=== PATIENT | female | born 1940 | race Caucasian/White ===

== ENCOUNTER → 2016-07-16 | Outpatient (CLI) | payer OTHER ==
--- NOTE | 2016-07-16 13:16 | MAMMOGRAPHY REPORT ---
BILATERAL DIGITAL SCREENING MAMMOGRAM WITH CAD: 07/16/2016 TECHNIQUE: Current study was also evaluated with a Computer Aided Detection (CAD) system. Bilatera l CC and MLO views were obtained. COMPARISON: Comparison is made to exams dated: 07/11/2015 mammogram, 06/29/2013 mammogram, 07/05/2014 m ammogram, 06/23/2012 mammogram, 06/18/2011 mammogram, and 06/16/2010 mammogram - [facility] nter. BREAST COMPOSITION: The tissue of both breasts is heterogeneously dense, which may obscure small ma sses. FINDINGS: No suspicious masses, calcifications, or areas of architectural distortion are noted in e ither breast. There has been no significant interval change compared to prior exams. IMPRESSION: ACR BI-RADS CATEGORY 1: NEGATIVE There is no mammographic evidence of malignancy. A 1 year screening mammogram is recommended. The p atient will receive written notification of the results. Approximately 10% of breast cancers are not detected with mammography. A negative mammographic repor t should not delay biopsy if a clinically suggestive mass is present. Kim Lemon M.D. /:07/16/2016 12:22:57 Cd Mixer: Sherin BARROW(Milind)(Kalyan), [facility] letter sent: Normal 1/2 BI-RADS Code: ACR BI-RADS Category 1: Negative
== END ==
LOC: C.MAMM 08:34
PROVIDERS: ATTEND Family Medicine
DX: Z12.31 Encounter for screening mammogram for malignant neoplasm of breast (principal)

== ENCOUNTER 2017-04-16 08:52 | Inpatient (IN) | payer OTHER ==
[2017-03-25 10:58] VITALS: BMI 25.0
--- NOTE | 2017-03-25 11:25 | PAT Medication Instructions ---
Service Date Mar 25, 2017. Current Home Medication List Calcium/Vitamin D (Os-Wai 500 Plus D), 1 TAB PO QAM Ibuprofen (Advil), 400 MG PO PRN Multivitamin (Multivitamin), 1 TAB PO QAM [[facility]], 1 TAB PO QAM [Nexium], 1 TAB PO PRN Medication Instructions For Your Scheduled Surgery - Check with surgeon for instructions: Ibuprofen (Advil), 400 MG PO PRN - Hold the following medications the morning of surgery: Calcium/Vitamin D (Os-Wai 500 Plus D), 1 TAB PO QAM Multivitamin (Multivitamin), 1 TAB PO QAM [[facility]], 1 TAB PO QAM - Take the following medications the morning of surgery with a sip of water: [Nexium], 1 TAB PO PRN (if needed) - Take the following medications as scheduled the night before surgery: [Nexium], 1 TAB PO PRN (if needed) If you have any questions please call us at [phone] or [phone] or [phone]
[2017-03-25 12:00] LABS: BASO % 0.6 %; BASO ABS # 0.03 K/uL (0-0.2); COMPLETE YES; EOS % 1.6 %; HEMATOCRIT 38.7 % (37-47); IG% 0.2 %; LYMPH % 28.6 %; LYMPH ABS # 1.42 K/uL (1.2-3.4); MEAN CELL VOLUME 93.9 fL (80-100); MEAN CORPUSCULAR HEMOGLOBIN 31.6 pg (25-34); MEAN CORPUSCULAR HGB CONC 33.6 g/dl (32-36); MEAN PLATELET VOLUME 11.1 fL (7.4-10.4); PLATELET COUNT 202 K/uL (130-400); RED BLOOD COUNT 4.12 M/uL (4.2-5.4); WHITE BLOOD COUNT 4.97 K/uL (4.8-10.8)
[2017-03-25 12:04] LABS: URINE APPEARANCE CLEAR (CLEAR); URINE BILIRUBIN NEG (NEG); URINE COLOR YELLOW; URINE EPITHELIAL CELL AUTO 0-5 /lpf (0-5); URINE NITRITE NEG (NEG); URINE SPECIFIC GRAVITY 1.019 (1.000-1.030); UROBILINOGEN NEG (NEG)
[2017-03-25 12:06] LABS: MANUAL MICROSCOPIC REQUIRED? NO; REVIEW REQ? NO
[2017-03-25 12:09] LABS: BUN/CREATININE RATIO 25.1 (10-20); CALCIUM 8.5 mg/dl (8.5-10.1); CREATININE 0.79 mg/dl (0.60-1.20); POTASSIUM 4.3 mmol/L (3.5-5.1)
[2017-03-25 12:10] LABS: PARTIAL THROMBOPLASTIN RATIO 1.1; PROTHROMBIN TIME (PATIENT) 10.7 SECONDS (9.0-12.0)
--- NOTE | 2017-03-25 12:43 | DIAGNOSTIC IMAGING REPORT ---
CHEST PREADMISSION(PA/LAT) CLINICAL HISTORY: Preoperative chest COMPARISON STUDY: No previous studies for comparison. FINDINGS: The cardiac and mediastinal contours are normal. There is no evidence of focal pulmonary consolidation. There is no evidence of failure. No pleural effusions are visualized.[ IMPRESSION: No active disease in the chest. Electronically signed by: Manjit Umanzor M.D. 03/25/2017 12:42 PM Dictated Date/Time: 03/25/2017 12:41 PM
[2017-03-25 13:01] LABS: ESTIMATED AVERAGE GLUCOSE 108 mg/dl; HA1C FLAG Normal (Normal)
--- NOTE | 2017-04-12 11:05 | History and Physical ---
History & Physical Date Apr 12, 2017. Chief Complaint Right knee pain History of Present Illness The patient is a 76 year old female with complaints of Right knee pain for several years. She has tried conservative therapy with minimal relief. She would like to proceed with a right total knee arthroplasty. Past Medical/Surgical History PMHx: Osteoarthritis, GERD PSHx: appendectomy, total hysterectomy, left carpal tunnel release Additional History Hepatic Disease: No Endocrine Disorder: No Kidney Disease: No Hypertension: No Heart Disease: No Bleeding Tendencies: No Infectious Diseases: No Allergies Coded Allergies: No Known Allergies (Unverified , 03/25/17) Home Medications Scheduled Calcium/Vitamin D (Os-Wai 500 Plus D), 1 TAB PO QAM Ibuprofen (Advil), 400 MG PO PRN Multivitamin (Multivitamin), 1 TAB PO QAM [[facility]], 1 TAB PO QAM [Nexium], 1 TAB PO PRN Physical Examination Skin: warm/dry, no rash Eyes: normal inspection, EOMI ENT: normal ENT inspection Head: normocephalic, atraumatic Neck: supple, no adenopathy Respiratory/Chest: lungs clear, normal breath sounds Cardiovascular: regular rate, rhythm, no murmur Abdomen / GI: normal bowel sounds, non tender Extremities: normal inspection, + pertinent finding (Medial joint line tenderness, ligaments are intact, decreased strength and ROM) Neurologic/Psych: no motor/sensory deficits, alert, oriented x 3 Diagnosis Primary osteoarthritis of right knee Plan of Treatment Patient is scheduled for a right total knee arthroplasty. She has failed conservative therapy. She would like to proceed with surgery as scheduled. Risks and benefits to surgery were discussed with the patient and they wish to proceed. All questions were answered to their satisfaction. ASA 81mg BID with be DVT prophylaxis and she would like to go home with Home health.
[~2017-04-16] VITALS: Ht 167.6 cm; Wt 70.3 kg
[2017-04-16] VITALS (7 sets, daily range): BP systolic 98–148; BP diastolic 60–90; PULSE 67–78; TEMP 36–36.8; O2SAT 95–100; Ht 167.6 cm; Wt 70.3 kg
[2017-04-16] MEDS: TRANEXAMIC ACID INJ 1,000 MG in SYRINGE 0 ML IV SCH ×2 (06:30→11:00)
[~2017-04-16 08:52] MED LIST: ACETAMINOPHEN 500 MG TAB PO SCH; BUPIVACAINE 0.5 % 5 MG/1 ML PF 10ML VIAL ONE; CALC500C70 PO; CEFAZOLIN 1000MG IV PUSH 5 ML IV SCH; CeleBREX 200 MG CAP PO SCH; DEXAMETHASONE 4 MG TAB PO SCH; FAMOTIDINE 20 MG TAB PO SCH; GABAPENTIN 300 MG CAP PO SCH; IBUP-1050 PO; LACTATED RINGER'S 1000ML 1,000 ML IV SCH; LACTATED RINGER'S 1000ML 500 ML IV ONE; MACU HEALTH PO; METOCLOPRAMIDE HCL 10 MG TAB PO SCH; MULT-506 PO; NEXIUM PO; ROPIVACAINE 0.5% 5 MG/ML 30 ML VIAL ONE; ROPIVACAINE 5MG/ML 30 ML 150 MG, BUPIVACAINE 0.5% MPF INJ 30 ML, EpINEphrine HCL INJ 0.... INFIL SCH
[2017-04-16] MEDS ORDERED: ATROPINE SULFATE 0.1 MG/ML 5ML SYR IV PRN (09:00)
[2017-04-16] MEDS ORDERED: ONDANSETRON INJ 2 MG/ML 2 ML VIAL IV PRN ×2 (09:00→13:30)
[2017-04-16] MEDS ORDERED: PHENYLEPHRINE 100MCG/ML 5ML SYR IV PRN (09:00)
[2017-04-16] MEDS ORDERED: EpHEDrine SULFATE INJ 50 MG/ML AMP IV PRN (09:00)
[2017-04-16] MEDS ORDERED: HYDROmorphone INJ 2 MG/ML SYR/VIAL IV PRN (09:00)
--- NOTE | 2017-04-16 10:08 | History & Physical Bridge Note ---
H&P Re-Evaluation Bridge Note: I have examined the patient, reviewed the History & Physical and in the interval since the performance of the History & Physical I have noted the following changes of clinical significance: No changes noted
[2017-04-16] MEDS ORDERED: MIDAZOLAM HCL 1 MG/ML 2ML VIAL ONE ×2 (10:18→11:55)
[2017-04-16] MEDS ORDERED: PROPOFOL IV EMULSION 10 MG/ML 20 ML VIAL IV ONE (10:18)
[2017-04-16] MEDS ORDERED: ONDANSETRON INJ 2 MG/ML 2 ML VIAL ONE (10:18)
[2017-04-16] MEDS ORDERED: LIDOCAINE HCL 2% 2 ML VIAL (20MG/ML) ONE (10:18)
[2017-04-16] MEDS ORDERED: FENTANYL CITRATE INJ 50 MCG/1 ML 2 ML VIAL ONE (10:18)
[2017-04-16] MEDS ORDERED: ORTHO JOINT ANESTHETIC ONE (10:43)
[2017-04-16] MEDS ORDERED: BACITRACIN 50000 UNIT VIAL ONE (10:43)
[2017-04-16] MEDS ORDERED: POVIDONE-IODINE OP SOLN 30 ML BTL ONE (10:43)
--- NOTE | 2017-04-16 12:43 | [facility] Operative Report ---
Operative Report Operative Date Apr 16, 2017. Pre-Operative Diagnosis Primary osteoarthritis of right knee Post-Operative Diagnosis Same Procedure(s) Performed Right Total knee Athroplasty Surgeon Dr Marcum Veterinary Inspector Surgeon(s) Ike Hester PA-C Estimated Blood Loss 20ML Findings As above Specimens a. Right Knee- Bone and Tissue Drains 2 Hemovac Anesthesia spinal Complication(s) None Disposition Recovery Room / PACU Indications 76-year-old female long-standing degenerative joint disease the right knee. She 's failed conservative measures including injection anti-inflammatories and rehabilitation. She wishes to proceed with a right total knee arthroplasty. Description of Procedure Risks benefits and alternatives of surgery including but not limited to infection, DVT, pain, stiffness, need for surgery, damage to blood vessels, damage to nerves or risks of anesthesia were discussed with the patient and they wished to proceed. The patient was identified and the laterality was confirmed and marked. They received a preoperative antibiotic as well as a spinal anesthetic and an abductor canal block. A well-padded tourniquet was applied and then the limb was prepped and draped in standard manner with ChloraPrep. The limb was exsanguinated and the tourniquet was inflated. I made a standard anterior incision. I sharply incised the skin then utilized Bovie electrocautery as well as the aqua mantis to achieve hemostasis. I made a medial parapatellar arthrotomy immobilized the patella laterally. I then excised the anterior horns of the medial and lateral meniscus as well as the infrapatellar fat pad. I elevated a portion of the MCL off of the tibia. I then pinned into place a patient-matched distal femoral cutting guide and made my distal femoral resection. I then pinned into place the 5 in 1 femoral cutting guide. I made my anterior, posterior and chamfer cuts. I then excised the cruciates and the remaining portions of the menisci. I then pinned into place a patient- matched tibial cutting guide and made my tibial resection. I then pinned into place the tibial plate a utilizing alignment momo to confirm rotation. I then cut for the post. Utilizing a lamina event decorator and designer and I then removed posterior osteophytes off the femur. I then placed a trial femur into position and cut for the trochlear component. I then sequentially trialed to size the polyethylene until there was good soft tissue balancing and range of motion. I then prepared the patella with a freehand cut utilizing sagittal saw. I sized and drilled for the patella. There was good tracking to the patella no lateral release was needed. All the trial components were removed. The deep tissues were anesthetized with an ortho mix solution. Then with Simplex HV with gentamicin cement, I cemented my definitive components. Definitive components, Oliver and Nephew Journey 2: Femur 4 Tibia 2 Poly 11 Patella 29 oval A betadine soak was performed. A deep drain was placed. The arthrotomy was closed with interrupted #1 Vicryl suture subcutaneous tissue was closed with interrupted 2-0 Vicryl suture. The skin was closed with with aura. A Silverlon was placed. Sterile dressings were applied. All needle and sponge counts were correct at the end of the procedure patient was transferred to the PACU in stable condition without apparent complication. The PA-C was necessary for assistance with procedure for assistance in positioning, prepping, draping, retraction and closure. I attest to the content of the Intraoperative Record and any orders documented therein. Any exceptions are noted below.
[2017-04-16] MEDS ORDERED: MAGNESIUM HYDROXIDE SUSP 30 ML UDC PO PRN (13:30)
[2017-04-16] MEDS ORDERED: MoRPHine SULFATE 2 MG/ML CARP IV PRN (13:30)
[2017-04-16] MEDS ORDERED: ALUMINUM/MAGNESIUM/SIMETH (MAALOX MAX) 30 ML UDC PO PRN (13:30)
[2017-04-16] MEDS ORDERED: MoRPHine SULFATE 4 MG/ML 1 ML CARP\\VIAL IV PRN (13:30)
[2017-04-16] MEDS ORDERED: TRAMADOL HCL 50 MG TAB PO PRN (13:30)
--- NOTE | 2017-04-16 13:43 | DIAGNOSTIC IMAGING REPORT ---
R KNEE 1 OR 2 VIEWS ROUTINE CLINICAL HISTORY: Right knee osteoarthritis. Arthroplasty. COMPARISON: None FINDINGS: Alignment of the total right knee arthroplasty is anatomic. There is no periprosthetic fracture or unexpected radiopaque foreign body. Drains and skin aura are present. IMPRESSION: Expected findings following total right knee arthroplasty. Electronically signed by: Sanchez Whittaker M.D. 04/16/2017 1:42 PM Dictated Date/Time: 04/16/2017 1:41 PM
--- NOTE | 2017-04-16 13:50 | Anesthesiology Progress Note ---
Anesthesia Post Op Note Date & Time Apr 16, 2017 at 13:50 Vital Signs Pain Intensity: 0 Vital Signs Past 12 Hours Date Time Temp Pulse Resp B/P (MAP) Pulse Ox O2 Delivery O2 Flow Rate FiO2 04/16/17 13:20 Nasal Cannula 3 04/16/17 13:12 36.2 64 16 122/68 99 Oxymask 7 04/16/17 09:25 36.8 78 18 143/90 95 Room Air Notes Mental Status: alert / awake / arousable, participated in evaluation Pt Amnestic to Procedure: Yes Nausea / Vomiting: adequately controlled Pain: adequately controlled Airway Patency, RR, SpO2: stable & adequate BP & HR: stable & adequate Hydration State: stable & adequate Anesthetic Complications: no major complications apparent
[2017-04-16] MEDS: D5W AND 1/2NSS + 20MEQ KCL 1,000 ML IV SCH ×2 (15:45→23:44)
[2017-04-16] MEDS: FERROUS GLUCONATE 324 MG TAB PO SCH (17:54)
[2017-04-16] MEDS: ACETAMINOPHEN 500 MG TAB PO SCH (17:54)
[2017-04-16] MEDS: CEFAZOLIN IV 1,000 MG in SYRINGE 0 ML IV SCH (19:39)
[2017-04-16] MEDS: OXYCODONE HCL IR 5 MG TAB (IMMEDIATE RELEASE) PO PRN (20:05)
[2017-04-16] MEDS: ASPIRIN 81 MG ECTAB PO SCH (20:50)
[2017-04-16] MEDS: SENNA 8.6 MG TAB PO SCH (20:50)
[2017-04-16] MEDS: DOCUSATE SODIUM 100 MG CAP PO SCH (20:50)
[2017-04-16] MEDS: CeleBREX 200 MG CAP PO SCH (20:50)
[2017-04-17] MEDS: ACETAMINOPHEN 500 MG TAB PO SCH ×3 (01:37→18:18)
[2017-04-17 03:15] VITALS: BP 123/79; PULSE 60; TEMP 36.4; O2SAT 97
[2017-04-17] MEDS: CEFAZOLIN IV 1,000 MG in SYRINGE 0 ML IV SCH (04:14)
[2017-04-17 06:06] LABS: HEMATOCRIT 33.4 % (37-47); MEAN CELL VOLUME 94.9 fL (80-100); MEAN CORPUSCULAR HEMOGLOBIN 31.5 pg (25-34); MEAN CORPUSCULAR HGB CONC 33.2 g/dl (32-36); MEAN PLATELET VOLUME 10.9 fL (7.4-10.4); PLATELET COUNT 169 K/uL (130-400); RED BLOOD COUNT 3.52 M/uL (4.2-5.4); WHITE BLOOD COUNT 11.49 K/uL (4.8-10.8)
[2017-04-17 06:40] LABS: BUN/CREATININE RATIO 16.5 (10-20); CALCIUM 8.2 mg/dl (8.5-10.1); CREATININE 0.77 mg/dl (0.60-1.20); POTASSIUM 4.7 mmol/L (3.5-5.1)
--- NOTE | 2017-04-17 07:24 | Orthopedic Progress Note ---
Orthopedic Progress Note Date of Service Apr 17, 2017. Subjective Post OP Day: 1 Reports: feeling well, pain controlled w PO medications, Denies: complaints, chest pain, SOB, nausea / vomiting, light headedness, calf pain Objective calves soft nontender, N/V intact, capillary refill less than 2 sec., dressing C /D/I, A&O x3, toes mobile, hemovac drainage (50cc/50cc) Date Time Temp Pulse Resp B/P (MAP) Pulse Ox O2 Delivery O2 Flow Rate FiO2 04/17/17 03:15 36.4 60 16 123/79 (94) 97 Room Air 04/16/17 23:40 Room Air 04/16/17 23:00 36.3 67 18 98/60 (73) 97 Room Air 04/16/17 20:14 36.5 69 17 127/80 (96) 96 Room Air 04/16/17 17:01 36.6 68 17 148/68 (94) 100 Room Air 04/16/17 15:56 36.4 68 18 145/85 (105) 100 Nasal Cannula 3.0 04/16/17 15:40 Nasal Cannula 3.0 04/16/17 15:04 36.0 77 17 134/80 (98) 100 Nasal Cannula 3.0 04/16/17 14:36 75 17 131/84 (100) 100 Nasal Cannula 3.0 04/16/17 14:00 Nasal Cannula 2.0 04/16/17 14:00 Nasal Cannula 2.0 04/16/17 13:20 Nasal Cannula 3 04/16/17 13:12 36.2 64 16 122/68 99 Oxymask 7 04/16/17 09:25 36.8 78 18 143/90 95 Room Air Laboratory Results 24 Hours: Test 04/17/17 05:44 Hematocrit 33.4 % Hemoglobin 11.1 g/dL Assessment & Plan Assessment: POD#1 Right TKA Plan: Medical Management DVT - ASA PT/OT Discharge - Home with Home Health Inhouse Planning Pain Management: Celebrex, PO Tylenol, Oxy IR DVT Prophylaxis: TEDs, SCDs, ASA Discharge Planning Discharge Planning: home with home health Pain Management: Celebrex, PO Tylenol, Oxy IR DVT Prophylaxis: TEDs, ASA Therapy: Physical Therapy
[2017-04-17 07:56] VITALS: BP 129/77; PULSE 52; TEMP 36.5; O2SAT 100
[2017-04-17] MEDS: D5W AND 1/2NSS + 20MEQ KCL 1,000 ML IV SCH (09:28)
[2017-04-17] MEDS: FERROUS GLUCONATE 324 MG TAB PO SCH ×3 (09:31→18:17)
[2017-04-17] MEDS: OXYCODONE HCL IR 5 MG TAB (IMMEDIATE RELEASE) PO PRN ×3 (09:31→18:18)
[2017-04-17] MEDS: CeleBREX 200 MG CAP PO SCH ×2 (09:32→20:44)
[2017-04-17] MEDS: ASPIRIN 81 MG ECTAB PO SCH ×2 (09:34→20:44)
[2017-04-17] MEDS: MULTIVITAMIN TAB PO SCH (09:34)
[2017-04-17] MEDS: DOCUSATE SODIUM 100 MG CAP PO SCH ×2 (09:35→20:44)
[2017-04-17] MEDS: PANTOprazole SOD 40 MG TAB PO SCH (09:35)
[2017-04-17 12:27] VITALS: BP 134/77; PULSE 58; TEMP 36.2; O2SAT 100
[2017-04-17 13:05] VITALS: BP 137/89; PULSE 69; O2SAT 100
[2017-04-17 15:05] VITALS: BP 141/83; PULSE 60; TEMP 36.3; O2SAT 100
--- NOTE | 2017-04-17 20:34 | Discharge Instructions ---
Discharge Instructions Date of Service Apr 17, 2017. Admission Reason for Admission: Right Knee Osteoarthritis Discharge Discharge Diagnosis / Problem: S/P Right TKA Discharge Goals Goal(s): Decrease discomfort, Improve function Activity Recommendations Activity Limitations: per Instructions/Follow-up section . Instructions / Follow-Up Instructions / Follow-Up ACTIVITY RECOMMENDATIONS: SELF CARE INSTRUCTIONS AFTER TOTAL KNEE REPLACEMENT A. You may need to continue a physical therapy program after discharge from the hospital. There are several options available to you. Your doctor will assist you in selecting the best one for you. 1. An out-patient facility 2 to 3 times a week for therapy or home therapy. 2. Continue working on all exercises taught to you in the hospital. Your goals should be to increase bending of your knee to 90 degrees and beyond and to fully straighten your knee. B. You may progress at your own pace from walking with a walker or crutches to a cane; then to no assistive devices. C. Make walking a part of your daily routine. Be up as much as comfortable with rest periods throughout the day. Rest with leg elevation is very important. Use the ice wrap frequently for the first 3-4 weeks. D. There are no restrictions on activities. You may ride in a car, shop, participate in cathode washer and all social activities. E. Wear the long elastic stockings (MILEY hose) 20 hours a day for 2 weeks after surgery. They can be removed several times a day for laundering and for a bath. F. You may shower, no tub baths until cleared by your doctor. SPECIAL CARE INSTRUCTIONS: VERY IMPORTANT TO READ AND REVIEW A. There are a few signs you need to watch for after you are home. Call [facility] if you notice any of the followin. Increased severe knee pain. Some pain is expected especially when you exercise. 2. Increased swelling in your leg or knee; pain or swelling of the calf muscle in either lower leg. 3. Any fluid drainage from the incision. 4. Shortness of breath or chest pain. B. Please call [facility] at if you have any concerns or questions about your operation or recovery. The doctor or his nurse will return your call promptly. C. You must take antibiotics before dental work, bladder, bowel or other surgery. Your doctor will provide you with a permanent care to carry describing this precaution. IMPORTANT: * REMEMBER TO TAKE ASPIRIN, 81 MG, TWICE DAILY FOR 4 WEEKS UNLESS OTHERWISE DIRECTED. THIS IS YOUR BLOOD THINNER. * CALL IF INCREASED PAIN, REDNESS, DRAINAGE OR FEVER GREATER THAT 101. * WEAR MILEY HOSE 20 HOURS PER DAY FOR 2 WEEKS. * YOU MAY HAVE A LARGE BAND-AID LIKE DRESSING (SILVERON). THIS WILL REMAIN ON YOUR INCISION FOR 7 DAYS, THEN CAN BE REMOVED. IF INCISION IS LEAKING THROUGH DRESSING, CALL THE OFFICE . FOLLOW UP VISIT: If appointment is not already scheduled: Please call [facility] to make a follow-up appointment with Dr. Marcum or his PA for 2 weeks after your surgery at . Current Hospital Diet Patient's current hospital diet: Regular Diet Discharge Diet Recommended Diet: Regular Diet Procedures Procedures Performed: Right Total knee Athroplasty Pending Studies Studies pending at discharge: no Laboratory Results Hemoglobin A1c Test 03/25/17 11:32 Range/Units Estimated Average Glucose 108 mg/dl Hemoglobin A1c 5.4 4.5-5.6 % Medical Emergencies . Who to Call and When: Medical Emergencies: If at any time you feel your situation is an emergency, please call 911 immediately. . Non-Emergent Contact Non-Emergency issues call your: Surgeon Call Non-Emergent contact if: temperature is above 101.5, your pain is worsening, wound has increased drainage, wound has increased redness . "Provider Documentation" section prepared by Cheikh Mcconnell. . VTE Core Measure Inpt VTE Proph given/why not?: Other Anticoagulation (ASA) [place] Drug Monitoring Program Search Results: patient reviewed within database, no issues identified
[2017-04-17] MEDS: SENNA 8.6 MG TAB PO SCH (20:45)
[2017-04-17 22:50] VITALS: BP 131/74; PULSE 77; TEMP 36.8; O2SAT 92
[2017-04-18] MEDS: OXYCODONE HCL IR 5 MG TAB (IMMEDIATE RELEASE) PO PRN ×2 (00:12→08:38)
[2017-04-18] MEDS: ACETAMINOPHEN 500 MG TAB PO SCH ×2 (02:00→10:19)
--- NOTE | 2017-04-18 07:01 | Orthopedic Progress Note ---
Orthopedic Progress Note Date of Service Apr 18, 2017. Subjective Post OP Day: 2 Reports: feeling well, pain controlled w PO medications, Denies: complaints, chest pain, SOB, nausea / vomiting, light headedness, calf pain Objective calves soft nontender, N/V intact, capillary refill less than 2 sec., dressing C /D/I, A&O x3, toes mobile Window of silverlon shows mild bloody tinge Date Time Temp Pulse Resp B/P (MAP) Pulse Ox O2 Delivery O2 Flow Rate FiO2 04/18/17 00:05 Room Air 04/17/17 22:50 36.8 77 16 131/74 (93) 92 Room Air 04/17/17 15:44 Room Air 04/17/17 15:05 36.3 60 18 141/83 (102) 100 Room Air 04/17/17 13:05 69 100 04/17/17 12:27 36.2 58 16 134/77 (96) 100 Room Air 04/17/17 09:16 Room Air 04/17/17 07:56 36.5 52 16 129/77 (94) 100 Room Air Assessment & Plan Assessment: POD#2 Right TKA Plan: Medical Management DVT - ASA PT/OT Discharge - Home with Home Health Inhouse Planning Pain Management: Celebrex, PO Tylenol, Oxy IR DVT Prophylaxis: TEDs, SCDs, ASA Discharge Planning Discharge Planning: home with home health Pain Management: Celebrex, PO Tylenol, Oxy IR DVT Prophylaxis: TEDs, ASA Therapy: Physical Therapy
[2017-04-18] MEDS ORDERED: ASPEC81 PO (07:03)
[2017-04-18] MEDS ORDERED: RXC5 PO (07:03)
[2017-04-18] MEDS ORDERED: CLB200 PO (07:03)
[2017-04-18] MEDS ORDERED: ONDA8TAB6 PO (07:03)
[2017-04-18] MEDS ORDERED: ACET-24 PO (07:03)
[2017-04-18 07:54] VITALS: BP 156/82; PULSE 88; TEMP 36.7; O2SAT 93
[2017-04-18] MEDS: FERROUS GLUCONATE 324 MG TAB PO SCH (08:39)
[2017-04-18] MEDS: MULTIVITAMIN TAB PO SCH (08:39)
[2017-04-18] MEDS: PANTOprazole SOD 40 MG TAB PO SCH (08:39)
[2017-04-18] MEDS: DOCUSATE SODIUM 100 MG CAP PO SCH (08:41)
[2017-04-18] MEDS: CeleBREX 200 MG CAP PO SCH (08:41)
[2017-04-18] MEDS: ASPIRIN 81 MG ECTAB PO SCH (08:41)
[2017-04-18 08:52] VITALS: BP 134/76; PULSE 70; O2SAT 96
== END 2017-04-18 11:05 | disposition home health service (06) | DRG 470 ==
LOC: C.ACU 08:52 → C.3E 10:05 → ENRESERV 13:44
PROVIDERS: ADMIT Orthopaedic Surgery; ATTEND Orthopaedic Surgery
PROC: 0SRC0J9 Replacement of Right Knee Joint with Synthetic Substitute, Cemented, Open Approach (ICD-10-PCS; principal; 2017-04-16 11:15)
DX: M17.11 Unilateral primary osteoarthritis, right knee (principal); K21.9 Gastro-esophageal reflux disease without esophagitis

== ENCOUNTER → 2017-07-22 | Outpatient (CLI) | payer OTHER ==
[~2017-07-22] MED LIST changes: +ACET-24 PO; -ACETAMINOPHEN 500 MG TAB PO SCH; +ASPEC81 PO; -BUPIVACAINE 0.5 % 5 MG/1 ML PF 10ML VIAL ONE; -CEFAZOLIN 1000MG IV PUSH 5 ML IV SCH; +CLB200 PO; -CeleBREX 200 MG CAP PO SCH; -DEXAMETHASONE 4 MG TAB PO SCH; -FAMOTIDINE 20 MG TAB PO SCH; -GABAPENTIN 300 MG CAP PO SCH; -IBUP-1050 PO; -LACTATED RINGER'S 1000ML 1,000 ML IV SCH; -LACTATED RINGER'S 1000ML 500 ML IV ONE; -METOCLOPRAMIDE HCL 10 MG TAB PO SCH; +ONDA-170 PO; -ROPIVACAINE 0.5% 5 MG/ML 30 ML VIAL ONE; -ROPIVACAINE 5MG/ML 30 ML 150 MG, BUPIVACAINE 0.5% MPF INJ 30 ML, EpINEphrine HCL INJ 0.... INFIL SCH; +RXC5 PO
--- NOTE | 2017-07-22 15:15 | MAMMOGRAPHY REPORT ---
BILATERAL DIGITAL SCREENING MAMMOGRAM TOMOSYNTHESIS WITH CAD: 07/22/2017 CLINICAL HISTORY: Routine screening. Patient has no complaints. TECHNIQUE: Breast tomosynthesis in addition to standard 2D mammography was performed. Current study was also evaluated with a Computer Aided Detection (CAD) system. COMPARISON: Comparison is made to exams dated: 07/16/2016 mammogram, 07/11/2015 mammogram, 07/05/2014 mark mogram, 06/29/2013 mammogram, 12/23/2012 mammogram, and 06/23/2012 mammogram - [facility]. BREAST COMPOSITION: The tissue of both breasts is heterogeneously dense, which may obscure small mas ses. FINDINGS: No suspicious masses, calcifications, or areas of architectural distortion are noted in ei ther breast. There has been no significant interval change compared to prior exams. IMPRESSION: ACR BI-RADS CATEGORY 1: NEGATIVE There is no mammographic evidence of malignancy. A 1 year screening mammogram is recommended. The pa tient will receive written notification of the results. Approximately 10% of breast cancers are not detected with mammography. A negative mammographic report should not delay biopsy if a clinically suggestive mass is present. Kim Lemon M.D. ah/:07/22/2017 12:16:32 Associate Data Scientist: Sherin BARROW(R)(M), [facility] letter sent: Normal 1/2 BI-RADS Code: ACR BI-RADS Category 1: Negative
== END | disposition home or self-care (01) ==
LOC: C.MAMM 10:04
PROVIDERS: ATTEND Family Medicine
DX: Z12.31 Encounter for screening mammogram for malignant neoplasm of breast (principal)

== ENCOUNTER 2020-01-11 11:09 | Inpatient (IN) ==
--- NOTE | 2019-12-15 12:58 | PAT Medication Instructions ---
Medication Instructions Date of Service December 15, 2019 Home Medications calcium carbonate-vitamin D3 [Calcium 600 + D(3)] 1 cap PO QAM garlic 1,000 mg PO QAM [id number] 1 cap PO QAM lisinopril 5 mg PO QAM multivitamin 1 tab PO QAM [id number] [Macular Health Formula] 1 cap PO QAM turmeric-turmeric ext-pepper 500 mg PO QAM STOP taking 2 weeks before surgery (or as soon as possible if surgery is within 2 weeks) garlic 1,000 mg PO QAM [id number]-[id number] 1 cap PO QAM [id number] [Macular Health Formula] 1 cap PO QAM turmeric-turmeric ext-pepper 500 mg PO QAM DO NOT take the morning of surgery calcium carbonate-vitamin D3 [Calcium 600 + D(3)] 1 cap PO QAM lisinopril 5 mg PO QAM multivitamin 1 tab PO QAM Other Notes If you have any questions please call us at [phone] or [phone] or [phone] or [phone]
--- NOTE | 2019-12-18 13:25 | Anesthesiology Consultation ---
Date of Service December 18, 2019 Assessment & Plan (1) Encounter for pre-operative examination: Per PAT assessment on 12/17: Travel screen negative. No known COVID-19 positive contacts. No current COVID-19 related symptoms. Surgeon arranging preop COVID testing. Awaiting results. Chart Review Chart Review: Acceptable Risk for Surgery (pending surgeon-ordered PCP clearance scheduled 12/25 (Dr. Monahan; [facility])) and Patient seen in Pre Admission Testing Teaching & Discussion Pre-Anesthesia Teaching/Discussion Notes: Instructed NPO after midnight before surgery,except medications with 15 cc of water. Medication instructions provided according to the PAT guidelines. History Surgery Operation Date: 01/11/20 08:15 Proposed Procedures p Left Reverse Total Shoulder Arthroplasty - Maxx Marcum MD Height/Weight Height: 5 ft 5 in Weight: 67.2 kg Allergies Allergy/AdvReac Type Severity Reaction Status Date / Time No Known Allergies Allergy Unverified 12/11/19 10:07 Medications Home Medications Medication Instructions Recorded Confirmed Last Taken calcium carbonate-vitamin D3 1 cap PO QAM 12/11/19 12/11/19 Unknown [Calcium 600 + D(3)] garlic 1,000 mg PO QAM 12/11/19 12/11/19 Unknown [id number] 1 cap PO QAM 12/11/19 12/11/19 Unknown lisinopril 5 mg PO QAM 12/11/19 12/11/19 Unknown multivitamin 1 tab PO QAM 12/11/19 12/11/19 Unknown [id number] 1 cap PO QAM 12/11/19 12/11/19 Unknown [Macular Health Formula] turmeric-turmeric ext-pepper 500 mg PO QAM 12/11/19 12/11/19 Unknown Past Medical History Medical History DJD (degenerative joint disease) Dry eye Hypertension Osteoarthritis Peptic ulcer disease several years ago Exercise / Class Metabolic Activity II 4-5 Yardwork/Stairs/Walk up hill (one flight of stairs (no chest pain, no sob)) Past Family History Family History Mother Diabetes Past Surgical History Surgical History History of appendectomy History of bilateral tubal ligation History of carpal tunnel release LEFT WITH DE QUERVAIN REPAIR History of cataract surgery BILAT History of colonoscopy History of esophagogastroduodenoscopy (EGD) History of hysterectomy History of tooth extraction History of total knee replacement RIGHT Past Anesthesia History No Hx of Anesthesia Complications and No Family Hx of Anesthesia Complications History of PONV No Hx of PONV and No Hx of Motion Sickness Social History Smoking Status: Former smoker Do You Dip or Chew Tobacco: No Smoking End Date: OVER 20 YRS AGO Hx Alcohol Use: No Hx Substance Use: No substance use type: does not use Review of Systems Patient denies chest pain, shortness of breath, dyspnea on exertion, fever, chills, cough, wheezing, palpitations. Physical Exam Vital Signs VITALS BP 118/75 P 69 TEMP 98.5 SP02 97%RA RESP 18 PHYSICAL Full neck and c-spine range of motion. Full TMJ range of motion. TMD 2.5 finger breaths Mallampati Score 3 Dentition: lower denture with implants, partial on upper Lungs: clear throughout to auscultation Cardiac: regular rate and rhythm, no murmurs noted Spine: normal Carotid arteries: negative bruit Extremities: no edema Testing Laboratory Results 12/18/19 13:55 12/18/19 13:55 PT 11.0 Seconds (9.0-12.0) 12/18/19 13:55 INR 1.0 (0.9-1.1) 12/18/19 13:55 APTT 26.8 Seconds (21.0-31.0) 12/18/19 13:55 Hemoglobin A1c 5.4 % (4.5-5.6) 12/18/19 13:55 Urine Color Yellow 12/18/19 13:55 Urine Appearance Clear (Clear) 12/18/19 13:55 Urine pH 7.0 (4.5-7.5) 12/18/19 13:55 Ur Specific [place] 1.012 (1.000-1.030) 12/18/19 13:55 Urine Protein Negative (Negative) 12/18/19 13:55 Urine Glucose (UA) Negative (Negative) 12/18/19 13:55 Urine Ketones Negative (Negative) 12/18/19 13:55 Urine Nitrite Negative (Negative) 12/18/19 13:55 Ur Leukocyte Esterase Negative (Negative) 12/18/19 13:55 Blood Type A Positive 12/18/19 13:55 Antibody Screen NEGATIVE 12/18/19 13:55 Electrocardiogram Date: 12/18/19 Findings: + NSR @ (66) Chest X-Ray Date: 12/18/19 FINDINGS: The cardiac and mediastinal contours are normal. There is no evidence of focal pulmonary consolidation. There is no evidence of failure. No pleural effusions are visualized. There is minimal progression in the mild lower lobe predominant interstitial thickening. IMPRESSION: No active disease in the chest.
--- NOTE | 2019-12-18 14:32 | XRay Report ---
XR chest Pre-admission PA/Lat CLINICAL HISTORY: Preoperative chest COMPARISON STUDY: 03/25/2017 FINDINGS: The cardiac and mediastinal contours are normal. There is no evidence of focal pulmonary co nsolidation. There is no evidence of failure. No pleural effusions are visualized.[There is minimal p rogression in the mild lower lobe predominant interstitial thickening IMPRESSION: No active disease in the chest. ACT 112: Negative or not required by law. Electronically signed by: Manjit Umanzor M.D. 12/18/2019 2:30 PM
[2019-12-18 14:40] LABS: Basophils # (auto) 0.02 K/uL (0-0.2); Basophils % (auto) 0.3 %; Eosinophils # (auto) 0.07 K/uL (0-0.5); Eosinophils % (auto) 1.2 %; Hematocrit (blood only) 36.6 % (37-47); Hemoglobin 12.3 g/dL (12.0-16.0); Immature Granulocytes # (auto) 0.01 K/uL (0.00-0.02); Immature Granulocytes % (auto) 0.2 %; Lymphocytes # (auto) 1.56 K/uL (1.2-3.4); Lymphocytes % (auto) 25.7 %; Mean Corpuscular Hemoglobin 32.4 pg (25-34); Mean Corpuscular Hgb Conc 33.6 g/dL (32-36); Mean Corpuscular Volume 96.3 fL (80-100); Mean Platelet Volume 11.1 fL (7.4-10.4); Monocytes % (auto) 8.3 %; Neutrophils % (auto) 64.3 %; Platelet Count 211 K/uL (130-400); RDW Coefficient of Variation 12.5 % (11.5-14.5); RDW Standard Deviation 43.8 fL (36.4-46.3); White Blood Count 6.06 K/uL (4.8-10.8)
[2019-12-18 14:44] LABS: Appearance Urine Clear (Clear); Bilirubin Urine Negative (Negative); Blood Urine Negative (Negative); Color Urine Yellow; Glucose Urine UA Negative (Negative); Ketones Urine Negative (Negative); Leukocyte Esterase Urine Negative (Negative); Nitrite Urine Negative (Negative); Protein Urine Negative (Negative); Specific Gravity Urine 1.012 (1.000-1.030); Urobilinogen Urine Negative (Negative)
[2019-12-18 14:51] LABS: Partial Thromboplastin Time 26.8 Seconds (21.0-31.0)
[2019-12-18 15:02] LABS: Albumin Level 3.4 gm/dl (3.4-5.0); BUN Creatinine Ratio 17.3 (10-20); Calcium 8.8 mg/dl (8.5-10.1); Creatinine Clr Calc Pharmacy 33.6 ml/min; Est GFR (African American) 48.2; Est GFR (Non-African American) 41.6; Potassium 4.1 mmol/L (3.5-5.1)
[2019-12-19 05:37] LABS: Estimated Average Glucose 108 mg/dl; Hemoglobin A1C 5.4 % (4.5-5.6)
--- NOTE | 2019-12-19 06:04 | Electrocardiogram Report ---
Test Reason : Blood Pressure : / mmHG Vent. Rate : 066 BPM Atrial Rate : 066 BPM P-R Int : 176 ms QRS Dur : 074 ms QT Int : 416 ms P-R-T Axes : 077 066 057 degrees QTc Int : 436 ms Normal sinus rhythm Normal ECG When compared with ECG of 25-MAR-2017 11:39, No significant change was found Confirmed by Panfilo Munroe ([id number]) on 12/19/2019 6:04:26 AM Referred By: Maxx Marcum Confirmed By:Panfilo Munroe
--- NOTE | 2020-01-05 11:59 | History & Physical Report ---
Date of Service January 05, 2020 Assessment & Plan (1) Primary osteoarthritis, left shoulder: Admission and Anticipated Discharge Date Admission Date: Treatment options discussed. She has failed conservative measure as above. She has significant degenerative changes in her shoulder and is bone on bone glenohumeral joint with humeral head elevation. She would like to proceed with surgical intervention. Risks, benefits and alternatives to surgery including but not limited to infection, DVT, pain, stiffness, need for revision surgery, damage to blood vessels, damage to nerves, PE, , were discussed with the patient and they wish to proceed. Plan will be for left reverse total shoulder arthroplasty at [facility] on 01/11/20. Will place her on daily baby aspirin post op for DVT prophylaxis. She will plan on HHPT post discharge. All questions answered. She will follow up post operatively. History of Present Illness Chief Complaint: Left shoulder pain Primary Care Provider: NO PCP Patient is a 79 year old female with PMHx significant for HTN and PUD who presents with long standing left shoulder pain. She has pain interfering with her activities of daily living. She has failed conservative therapy including cortisone injections, physical therapy, and anti-inflammatory medications. She has significant degenerative changes in he u. She would like to proceed with replacement. Patient denies headaches, sweats, fevers, chills, double vision, blurred vision, cough, sore throat, dysphagia, chest pain, sob, wheezing, n/v/d/c, numbness, tingling, fatigue, urinary symptoms, mood disorders. ROS positive for left shoulder pain and stiffness. Allergies Allergy/AdvReac Type Severity Reaction Status Date / Time No Known Allergies Allergy Unverified 12/11/19 10:07 Home Medications Home Medications Medication Instructions Recorded Confirmed Type calcium carbonate-vitamin D3 1 cap PO QAM 12/11/19 12/11/19 History [Calcium 600 + D(3)] garlic 1,000 mg PO QAM 12/11/19 12/11/19 History [id number] 1 cap PO QAM 12/11/19 12/11/19 History lisinopril 5 mg PO QAM 12/11/19 12/11/19 History multivitamin 1 tab PO QAM 12/11/19 12/11/19 History [id number] 1 cap PO QAM 12/11/19 12/11/19 History [Macular Health Formula] turmeric-turmeric ext-pepper 500 mg PO QAM 12/11/19 12/11/19 History Past Med/Surg History Medical History DJD (degenerative joint disease) Dry eye Hypertension Osteoarthritis Peptic ulcer disease several years ago Surgical History History of appendectomy History of bilateral tubal ligation History of carpal tunnel release LEFT WITH DE QUERVAIN REPAIR History of cataract surgery BILAT History of colonoscopy History of esophagogastroduodenoscopy (EGD) History of hysterectomy History of tooth extraction History of total knee replacement RIGHT Family History Mother Diabetes Social History Smoking Status: Former smoker Smoking End Date: OVER 20 YRS AGO; Second Hand Exposure: Yes ( SMOKED); Do You Dip or Chew Tobacco: No; Tobacco Cessation Education Requested by Patient: No Hx Alcohol Use: No Hx Substance Use: No Preferred Language: Armenian Communication Ability: Effective Captain Fishing Vessel Required: No Beliefs That Will Affect Care: None Current Living Situation: Alone Other Information That Helps Us Care for You: No Feels Safe at Home: Yes Safety Concerns: Feels Safe At This Time Review of Systems All systems reviewed & are unremarkable except as noted in HPI & below Physical Exam Constitutional: well developed and well nourished; no acute distress Eyes: PERRL, conjunctivae normal, anicteric sclerae ENMT: external ear and nose normal, oropharynx normal Neck: trachea midline, no thyromegaly Respiratory: normal respiratory effort, lungs clear to auscultation Cardiovascular: RRR, no murmur, no edema Musculoskeletal: Left shoulder: Active forward flexion 0 to 90 degrees abduction 0-90 ER rotation is to neutral Skin: no rashes, warm and dry Neurologic: patellar DTR's 2+ bilat, sensation intact Psychiatric: A+Ox3, euthymic affect Results & Data ([facility]) Laboratory Results Lab Results 12/18/19 12/18/19 12/18/19 Range/Units 13:55 13:55 13:55 WBC 6.06 (4.8-10.8) K/uL RBC 3.80 L (4.2-5.4) M/uL Hgb 12.3 (12.0-16.0) g/dL Hct 36.6 L (37-47) % MCV 96.3 (80-100) fL MCH 32.4 (25-34) pg MCHC 33.6 (32-36) g/dL RDW Std Deviation 43.8 (36.4-46.3) fL RDW Coeff of Aguilar 12.5 (11.5-14.5) % Plt Count 211 (130-400) K/uL MPV 11.1 H (7.4-10.4) fL Immature Gran % (Auto) 0.2 % Neut % (Auto) 64.3 % Lymph % (Auto) 25.7 % [place] % (Auto) 8.3 % Eos % (Auto) 1.2 % Baso % (Auto) 0.3 % Neut # (Auto) 3.90 (1.4-6.5) K/uL Lymph # (Auto) 1.56 (1.2-3.4) K/uL [place] # (Auto) 0.50 (0.11-0.59) K/uL Eos # (Auto) 0.07 (0-0.5) K/uL Baso # (Auto) 0.02 (0-0.2) K/uL Immature Gran # (Auto) 0.01 (0.00-0.02) K/uL PT 11.0 (9.0-12.0) Seconds INR 1.0 (0.9-1.1) APTT 26.8 (21.0-31.0) Seconds PTT Ratio 1.0 Sodium (136-145) mmol/L Potassium (3.5-5.1) mmol/L Chloride (98-107) mmol/L Carbon Dioxide (21-32) mmol/L Anion Gap (3-11) BUN (7-18) mg/dl Creatinine (0.6-1.2) mg/dl Est Cr Clr Drug Dosing ml/min Est GFR ( Amer) Est GFR (Non-Af Amer) BUN/Creatinine Ratio (10-20) Glucose (70-99) mg/dl Estimat Average Glucose mg/dl Hemoglobin A1c (4.5-5.6) % Calcium (8.5-10.1) mg/dl Albumin (3.4-5.0) gm/dl Urine Color Urine Appearance (Clear) Urine pH (4.5-7.5) Ur Specific Spencer (1.000-1.030) Urine Protein (Negative) Urine Glucose (UA) (Negative) Urine Ketones (Negative) Urine Blood (Negative) Urine Nitrite (Negative) Urine Bilirubin (Negative) Urine Urobilinogen (Negative) Ur Leukocyte Esterase (Negative) Blood Type A Positive Antibody Screen NEGATIVE 12/18/19 12/18/19 12/18/19 Range/Units 13:55 13:55 13:55 WBC (4.8-10.8) K/uL RBC (4.2-5.4) M/uL Hgb (12.0-16.0) g/dL Hct (37-47) % MCV (80-100) fL MCH (25-34) pg MCHC (32-36) g/dL RDW Std Deviation (36.4-46.3) fL RDW Coeff of Aguilar (11.5-14.5) % Plt Count (130-400) K/uL MPV (7.4-10.4) fL Immature Gran % (Auto) % Neut % (Auto) % Lymph % (Auto) % [place] % (Auto) % Eos % (Auto) % Baso % (Auto) % Neut # (Auto) (1.4-6.5) K/uL Lymph # (Auto) (1.2-3.4) K/uL Baxter # (Auto) (0.11-0.59) K/uL Eos # (Auto) (0-0.5) K/uL Baso # (Auto) (0-0.2) K/uL Immature Gran # (Auto) (0.00-0.02) K/uL PT (9.0-12.0) Seconds INR (0.9-1.1) APTT (21.0-31.0) Seconds PTT Ratio Sodium 139 (136-145) mmol/L Potassium 4.1 (3.5-5.1) mmol/L Chloride 106 (98-107) mmol/L Carbon Dioxide 27 (21-32) mmol/L Anion Gap 6.0 (3-11) BUN 22 H (7-18) mg/dl Creatinine 1.24 H (0.6-1.2) mg/dl Est Cr Clr Drug Dosing 33.6 ml/min Est GFR ( Amer) 48.2 Est GFR (Non-Af Amer) 41.6 BUN/Creatinine Ratio 17.3 (10-20) Glucose 110 H (70-99) mg/dl Estimat Average Glucose 108 mg/dl Hemoglobin A1c 5.4 (4.5-5.6) % Calcium 8.8 (8.5-10.1) mg/dl Albumin 3.4 (3.4-5.0) gm/dl Urine Color Yellow Urine Appearance Clear (Clear) Urine pH 7.0 (4.5-7.5) Ur Specific Spencer 1.012 (1.000-1.030) Urine Protein Negative (Negative) Urine Glucose (UA) Negative (Negative) Urine Ketones Negative (Negative) Urine Blood Negative (Negative) Urine Nitrite Negative (Negative) Urine Bilirubin Negative (Negative) Urine Urobilinogen Negative (Negative) Ur Leukocyte Esterase Negative (Negative) Blood Type Antibody Screen Diagnostic Findings Left shoulder: Significant degenerative changes throughout the shoulder with cystic changes and subchondral sclerosis. Bone on bone glenohumeral joint
[~2020-01-11 11:09] MED LIST changes: -ACET-24 PO; +ACETAMINOPHEN 500 MG TAB PO SCH; -ASPEC81 PO; -CALC500C70 PO; +CEFAZOLIN 1000MG 1,000 MG/7.5 ML SYR IV SCH; -CLB200 PO; +CeleBREX 200 MG CAP PO SCH; +DEXAMETHASONE SOD INJ 4 MG/ML VIAL ONE; +FAMOTIDINE 20 MG TAB PO SCH; +GABAPENTIN 300 MG CAP PO SCH; +GLYCOPYRROLATE 0.2 MG/ML VIAL ONE; +LIDOCAINE HCL 2% 2 ML VIAL/AMP(20MG/ML) INFIL ONE; +LR 15ML/HR IV SCH; -MACU HEALTH PO; +METOCLOPRAMIDE HCL 10 MG TABLET PO SCH; +MIDAZOLAM HCL 1 MG/ML 2ML VIAL ONE; -MULT-506 PO; +NEOSTIGMINE METHYLSULFATE 5 MG/5 ML SYR ONE; -NEXIUM PO; -ONDA-170 PO; +ONDANSETRON INJ 2 MG/ML 2 ML VIAL ONE; +PROPOFOL IV EMULSION 10 MG/ML 20 ML VIAL IV ONE; +ROPIVACAINE 0.5% 5 MG/ML 30 ML VIAL ONE; +ROPIVACAINE 0.5% HCL/PF 150 MG, BUPIVACAINE 0.5% MPF 30 ML, EPINEPHrine 30MG/30ML (OR U... INSTIL SCH; -RXC5 PO; +TRANEXAMIC ACID 1,000 MG **IV Intra-op IV SCH; +TRANEXAMIC ACID 1,000 MG **IV Pre-op IV SCH; +dexAMETHasone 4 MG TAB PO SCH; +fentaNYL citrate 100 MCG/2 ML VIAL ONE
--- NOTE | 2020-01-11 11:35 | History & Physical Bridge Note ---
Date of Service January 11, 2020 History & Physical Bridge Note I have examined the patient, reviewed the History & Physical and in the interval since the performance of the History & Physical I have noted the following changes of clinical significance: no changes noted
[2020-01-11] MEDS ORDERED: THROMBIN FOR SOLN 20000 UNIT KIT ONE (12:04)
[2020-01-11] MEDS ORDERED: BACITRACIN INJ 50,000 UNIT VIAL ONE (12:04)
[2020-01-11] MEDS ORDERED: VANCOMYCIN HCL 1000MG/20ML VIAL ONE (12:04)
[2020-01-11] MEDS ORDERED: ORTHO JOINT ANESTHETIC ONE (12:04)
[2020-01-11] MEDS ORDERED: fentaNYL citrate 100 MCG/2 ML VIAL IV PRN (12:20)
[2020-01-11] MEDS ORDERED: ONDANSETRON INJ 2 MG/ML 2 ML VIAL IV PRN ×2 (12:20→16:24)
[2020-01-11] MEDS ORDERED: ATROPINE SULFATE 0.1 MG/ML 10ML SYR IV PRN (12:20)
[2020-01-11] MEDS ORDERED: ePHEDrine sulfate 50 MG/ML AMP IV PRN (12:20)
[2020-01-11] MEDS ORDERED: PHENYLEPHRINE 100MCG/ML 5ML SYR ONE (13:10)
[2020-01-11] MEDS ORDERED: ePHEDrine sulfate 50 MG/ML SYR ONE (13:39)
[2020-01-11] MEDS ORDERED: WATER, STERILE FOR INJ 10 ML VIAL ONE (13:39)
[2020-01-11] MEDS ORDERED: ROCURONIUM BROMIDE 10 MG/ML 5 ML VIAL IV ONE (13:58)
[2020-01-11] MEDS ORDERED: LARYING-O-JET KIT (LTA) ONE (13:58)
[2020-01-11] MEDS ORDERED: PHENYLEPHRINE HCL 10 MG/ML VIAL ONE (14:01)
[2020-01-11] MEDS ORDERED: fentaNYL citrate 100 MCG/2 ML VIAL ONE (14:06)
[2020-01-11] MEDS ORDERED: NEOSTIGMINE METHYLSULFATE 5 MG/5 ML SYR ONE (14:45)
[2020-01-11] MEDS ORDERED: GLYCOPYRROLATE 0.2 MG/ML VIAL ONE (14:45)
--- NOTE | 2020-01-11 14:53 | Operative Report ---
Post Operative Report Pre & Post Diagnosis Operation Date: 01/11/20 13:15 Pre-Op Diagnosis: Primary Osteoarthritis, rotator cuff arthropathy left Shoulder Post-Op Diagnosis: Primary Osteoarthritis, rotator cuff arthropathy, tear long head biceps tendon left Shoulder I identified the patient and participated in the time-out.: Yes Procedure Operation Date: 01/11/20 13:15 Actual Procedures p Left Reverse Total Shoulder Arthroplasty(Left), biceps tenodesis- Maxx Marcum MD Surgeon Maxx Marcum MD Weather Reporter Lei Hester PA-C Estimated Blood Loss 50 Findings Consistent with Post-Op Diagnosis Specimens Bone and tissue Drains 1 Hemovac Anesthesia Type General Regional Complications none Disposition Accompanied Patient To Recovery: No Disposition: Recovery Room Indications Patient is a 79-year-old female significant arthritic change of the left shoulder. She is [id number]-[id number] of the humeral joint. She has moderate humeral head elevation. She has failed conservative measures including injection, anti- inflammatories, rehab. She wishes to proceed with a left reverse total shoulder arthroplasty Description of Procedure Risks, benefits and alternatives to surgery including, but not limited to, infection DVT, pain, stiffness, need for revision surgery, failure to relieve all symptoms, damage to blood vessels, damage to nerves, risk of anesthesia were discussed with the patient and they wished to proceed. The patient was identified. Laterality was confirmed and marked. The patient received a preoperative antibiotic as well as an interscalene block. They were transferred to the operating room and placed in the supine position and induced into general endotracheal anesthesia per the anesthesia staff. The patient was then safely transferred to a slight beachchair position. The patient was secured in the Tenet positioner. All pressure points were well padded. The shoulder was prepped and draped in the usual sterile manner with ChloraPrep. The arm was secured in the Spider her. I made a longitudinal incision just lateral to the coracoid, sharply incising through the skin and utilizing Bovie electrocautery to achieve hemostasis. I identified the cephalic vein and mobilized it laterally with the deltoid. I mobilize the pectoralis and mobilize this medially releasing a small portion of the upper border of the pec tendon to improve visualization. I then identified and mobilized the conjoined tendon. I identified the long head of the biceps tendon. The long head of the biceps tendon had significant tendinosis and tearing proximally. I performed an in situ biceps tenodesis with interrupted #2 FiberWire suture. I then released the subscapularis. I pinned into place my humeral head version cutting guide and made my humeral head resection. I then sequentially reamed and sequentially broached. I then placed the trial humeral stem into the shoulder. I placed retractors around the glenoid and then excised the residual biceps tendon stump and glenoid labrum. I elevated the soft tissues and the inferior aspect of the glenoid to improve exposure and released tissues circumferentially. I then positioned and drilled for the central post for the glenoid plate. The glenoid plate was bone grafted with bone taken from the humeral head. I impacted the definitive glenoid plate into position and then placed a total of 4 compression screws that were then locked into position with locking caps. I then placed the glenosphere onto the plate and secured it with a locking screw. I then removed the trial humeral stem and placed the definitive humeral stem. I trialed off of the definitive stem. The definitive components used were [employer] Equinox: Preserve short humeral press-fit stem: 6 Small glenoid plate Glenosphere: 36 Humeral tray:+ 0 Humeral polyethylene liner: + 0 I thoroughly irrigated the wound. Deep tissues were anesthetized with an orthomix solution. I then locked my definitive humeral tray into position with a torque limiting screw. I then impacted the definitive humeral polyethylene liner into position. I then reduced the shoulder. There was good range of motion and good stability after the reduction. The wound was again thoroughly irrigated and a Betadine soak was performed. A deep drain was placed. The deltopectoral interval was closed with interrupted #1 Ethibond suture. The subcutaneous tissue was closed with interrupted 2-0 Vicryl suture. The skin was closed with aura. A sterile dressing was applied. A sling was placed. All needle and sponge counts were correct at the end of the procedure. The patient was transferred to the PACU in stable condition without apparent complication. The PA-C was necessary for assistance with procedure for assistance in positioning, prepping, draping, retraction and closure. I attest to the content of the Intraoperative Record and any orders documented therein. Any exceptions are noted below.
--- NOTE | 2020-01-11 15:45 | XRay Report ---
XR shoulder LT min 2V routine HISTORY: 79 years-old Female Post shoulder surgery left shoulder total joint arthroplasty COMPARISON: Chest radiograph 03/25/2017 TECHNIQUE: 2 views of the left shoulder FINDINGS: Reverse left shoulder total joint arthroplasty. Satisfactory alignment without acute fracture or opaq ue foreign body. Expected postsurgical soft tissue swelling with deep tissue air and surgical drainag e catheter. Overlying skin aura. IMPRESSION: Reverse left shoulder total joint arthroplasty with satisfactory alignment. ACT 112: Negative or not required by law. The above report was generated using voice recognition software. It may contain grammatical, syntax o r spelling errors. Electronically signed by: Soto Oswald M.D. 01/11/2020 3:44 PM
--- NOTE | 2020-01-11 15:47 | Anesthesiology Progress Note ---
Date of Service January 11, 2020 Anesthesia Post Procedure Vital Signs Vital Signs: Temp Pulse Pulse Resp BP BP Pulse Ox 01/11/20 15:35 74 16 119/70 99 01/11/20 15:25 70 19 119/67 100 01/11/20 15:15 36.2 C L 74 16 123/67 100 01/11/20 11:42 36.8 C 70 20 147/86 H 98 Pain Intensity Left Shoulder: Pain Intensity: 4 Transfer of Care Handoff Completed per policy Notes Mental Status: alert / awake / arousable Patient Amnestic to Procedure: Yes Nausea / Vomiting: adequately controlled Pain: adequately controlled Airway Patency, RR, SpO2: stable & adequate BP & HR: stable & adequate Hydration State: stable & adequate Anesthetic Complications: no major complications apparent and Pt Satisfied with anesthetic care
[2020-01-11] MEDS ORDERED: MAGNESIUM HYDROXIDE SUSP 30 ML UDC PO PRN (16:24)
[2020-01-11] MEDS ORDERED: OXYCODONE HCL IR 5 MG TAB (IMMEDIATE RELEASE) PO PRN (16:24)
[2020-01-11] MEDS ORDERED: NALOXONE HCL 0.4 MG/1 ML VIAL/CARP IV PRN (16:24)
[2020-01-11] MEDS ORDERED: bisacodyL 10 MG SUPP PR PRN (16:24)
[2020-01-11] MEDS ORDERED: HYDROmorphone INJ 0.5 MG/0.5 ML SYR IV PRN (16:24)
[2020-01-11] MEDS: SODIUM CHLORIDE 0.9% 1000ML 1,000 ML IV SCH (16:44)
--- NOTE | 2020-01-11 17:39 | Anesthesiology Progress Note ---
Date of Service January 11, 2020 Anesthesia Post Procedure Vital Signs Vital Signs: Temp Pulse Pulse Resp BP BP Pulse Ox 01/11/20 17:28 36.6 C 77 18 121/77 92 01/11/20 17:06 36.5 C 69 18 118/75 93 01/11/20 16:26 36.5 C 75 16 112/71 97 01/11/20 16:10 74 16 122/65 100 01/11/20 15:55 36.2 C L 64 17 121/70 100 01/11/20 15:45 71 18 119/68 100 01/11/20 15:35 74 16 119/70 99 01/11/20 15:25 70 19 119/67 100 01/11/20 15:15 36.2 C L 74 16 123/67 100 01/11/20 11:42 36.8 C 70 20 147/86 H 98 Pain Intensity Left Shoulder: Pain Intensity: 4 Transfer of Care Handoff Completed per policy Notes Mental Status: alert / awake / arousable and participated in evaluation Patient Amnestic to Procedure: Yes Nausea / Vomiting: adequately controlled Pain: adequately controlled Airway Patency, RR, SpO2: stable & adequate BP & HR: stable & adequate Hydration State: stable & adequate Anesthetic Complications: no major complications apparent and Pt Satisfied with anesthetic care
[2020-01-11] MEDS: CEFAZOLIN 1000MG 1,000 MG/7.5 ML SYR IV SCH (20:53)
[2020-01-11] MEDS: DOCUSATE SODIUM 100 MG CAP PO SCH (20:54)
[2020-01-11] MEDS: ACETAMINOPHEN 500 MG TAB PO SCH (21:45)
[2020-01-12] MEDS: SODIUM CHLORIDE 0.9% 1000ML 1,000 ML IV SCH (03:47)
[2020-01-12] MEDS: CEFAZOLIN 1000MG 1,000 MG/7.5 ML SYR IV SCH (03:47)
[2020-01-12] MEDS: ACETAMINOPHEN 500 MG TAB PO SCH (05:41)
[2020-01-12 06:40] LABS: Hematocrit (blood only) 36.9 % (37-47); Hemoglobin 11.8 g/dL (12.0-16.0); Immature Granulocytes # (auto) 0.01 K/uL (0.00-0.02); Immature Granulocytes % (auto) 0.1 %; Lymphocytes # (auto) 0.79 K/uL (1.2-3.4); Mean Corpuscular Hemoglobin 31.4 pg (25-34); Mean Corpuscular Volume 98.1 fL (80-100); Mean Platelet Volume 11.5 fL (7.4-10.4); Monocytes # (auto) 0.55 K/uL (0.11-0.59); Monocytes % (auto) 6.3 %; Neutrophils # (auto) 7.41 K/uL (1.4-6.5); Neutrophils % (auto) 84.6 %; Platelet Count 197 K/uL (130-400); RDW Coefficient of Variation 12.4 % (11.5-14.5); RDW Standard Deviation 44.4 fL (36.4-46.3); Red Blood Count 3.76 M/uL (4.2-5.4); White Blood Count 8.76 K/uL (4.8-10.8)
[2020-01-12 07:19] LABS: BUN Creatinine Ratio 23.1 (10-20); Est GFR (Non-African American) 63.8; Potassium 4.8 mmol/L (3.5-5.1)
--- NOTE | 2020-01-12 07:49 | Orthopedic Progress Note ---
Date of Service January 12, 2020 Assessment & Plan (1) Primary osteoarthritis, left shoulder: POD#1 left reverse TSA -PT/OT-no active motion of shoulder -Pain management -DVT prophylaxis-ASA 81mg daily x 1 mo -AM labs as above -D/C planning-home with HHPT likely today as long as does well with PT. Admission and Anticipated Discharge Date Admission Date: January 11, 2020 Subjective Patient doing well this morning. Having minimal pain in shoulder. Block is resolved/resolving. No complaints, denies chest pain, sob, dizziness, n/v/d. Review of Systems Review of Systems: All systems reviewed & are unremarkable except as noted in HPI & below Physical Exam Physical Exam: Left shoulder sling in place, dressing is c/d/i. Hemovac in place. 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 Distally n/v status and sensation intact Constitutional: well developed and well nourished; no acute distress Results & Data ([facility]) Vital Signs (Past 12 Hours) Vital Signs Temp Pulse Resp BP Pulse Ox 01/12/20 05:42 108/62 01/12/20 03:15 36.6 C 66 16 91/58 L 92 01/11/20 23:52 36.5 C 96 H 16 103/62 93 Laboratory Results Lab Results 12/18/19 12/18/19 12/18/19 Range/Units 13:55 13:55 13:55 WBC 6.06 (4.8-10.8) K/uL RBC 3.80 L (4.2-5.4) M/uL Hgb 12.3 (12.0-16.0) g/dL Hct 36.6 L (37-47) % MCV 96.3 (80-100) fL MCH 32.4 (25-34) pg MCHC 33.6 (32-36) g/dL RDW Std Deviation 43.8 (36.4-46.3) fL RDW Coeff of Aguilar 12.5 (11.5-14.5) % Plt Count 211 (130-400) K/uL MPV 11.1 H (7.4-10.4) fL Immature Gran % (Auto) 0.2 % Neut % (Auto) 64.3 % Lymph % (Auto) 25.7 % [place] % (Auto) 8.3 % Eos % (Auto) 1.2 % Baso % (Auto) 0.3 % Neut # (Auto) 3.90 (1.4-6.5) K/uL Lymph # (Auto) 1.56 (1.2-3.4) K/uL [place] # (Auto) 0.50 (0.11-0.59) K/uL Eos # (Auto) 0.07 (0-0.5) K/uL Baso # (Auto) 0.02 (0-0.2) K/uL Immature Gran # (Auto) 0.01 (0.00-0.02) K/uL PT 11.0 (9.0-12.0) Seconds INR 1.0 (0.9-1.1) APTT 26.8 (21.0-31.0) Seconds PTT Ratio 1.0 Sodium (136-145) mmol/L Potassium (3.5-5.1) mmol/L Chloride (98-107) mmol/L Carbon Dioxide (21-32) mmol/L Anion Gap (3-11) BUN (7-18) mg/dl Creatinine (0.6-1.2) mg/dl Est Cr Clr Drug Dosing ml/min Est GFR ( Amer) Est GFR (Non-Af Amer) BUN/Creatinine Ratio (10-20) Glucose (70-99) mg/dl Estimat Average Glucose mg/dl Hemoglobin A1c (4.5-5.6) % Calcium (8.5-10.1) mg/dl Albumin (3.4-5.0) gm/dl Urine Color Urine Appearance (Clear) Urine pH (4.5-7.5) Ur Specific [place] (1.000-1.030) Urine Protein (Negative) Urine Glucose (UA) (Negative) Urine Ketones (Negative) Urine Blood (Negative) Urine Nitrite (Negative) Urine Bilirubin (Negative) Urine Urobilinogen (Negative) Ur Leukocyte Esterase (Negative) Blood Type A Positive Antibody Screen NEGATIVE 12/18/19 12/18/19 12/18/19 Range/Units 13:55 13:55 13:55 WBC (4.8-10.8) K/uL RBC (4.2-5.4) M/uL Hgb (12.0-16.0) g/dL Hct (37-47) % MCV (80-100) fL MCH (25-34) pg MCHC (32-36) g/dL RDW Std Deviation (36.4-46.3) fL RDW Coeff of Aguilar (11.5-14.5) % Plt Count (130-400) K/uL MPV (7.4-10.4) fL Immature Gran % (Auto) % Neut % (Auto) % Lymph % (Auto) % [place] % (Auto) % Eos % (Auto) % Baso % (Auto) % Neut # (Auto) (1.4-6.5) K/uL Lymph # (Auto) (1.2-3.4) K/uL [place] # (Auto) (0.11-0.59) K/uL Eos # (Auto) (0-0.5) K/uL Baso # (Auto) (0-0.2) K/uL Immature Gran # (Auto) (0.00-0.02) K/uL PT (9.0-12.0) Seconds INR (0.9-1.1) APTT (21.0-31.0) Seconds PTT Ratio Sodium 139 (136-145) mmol/L Potassium 4.1 (3.5-5.1) mmol/L Chloride 106 (98-107) mmol/L Carbon Dioxide 27 (21-32) mmol/L Anion Gap 6.0 (3-11) BUN 22 H (7-18) mg/dl Creatinine 1.24 H (0.6-1.2) mg/dl Est Cr Clr Drug Dosing 33.6 ml/min Est GFR ( Amer) 48.2 Est GFR (Non-Af Amer) 41.6 BUN/Creatinine Ratio 17.3 (10-20) Glucose 110 H (70-99) mg/dl Estimat Average Glucose 108 mg/dl Hemoglobin A1c 5.4 (4.5-5.6) % Calcium 8.8 (8.5-10.1) mg/dl Albumin 3.4 (3.4-5.0) gm/dl Urine Color Yellow Urine Appearance Clear (Clear) Urine pH 7.0 (4.5-7.5) Ur Specific [place] 1.012 (1.000-1.030) Urine Protein Negative (Negative) Urine Glucose (UA) Negative (Negative) Urine Ketones Negative (Negative) Urine Blood Negative (Negative) Urine Nitrite Negative (Negative) Urine Bilirubin Negative (Negative) Urine Urobilinogen Negative (Negative) Ur Leukocyte Esterase Negative (Negative) Blood Type Antibody Screen 01/12/20 01/12/20 Range/Units 05:15 05:15 WBC 8.76 (4.8-10.8) K/uL RBC 3.76 L (4.2-5.4) M/uL Hgb 11.8 L (12.0-16.0) g/dL Hct 36.9 L (37-47) % MCV 98.1 (80-100) fL MCH 31.4 (25-34) pg MCHC 32.0 (32-36) g/dL RDW Std Deviation 44.4 (36.4-46.3) fL RDW Coeff of Aguilar 12.4 (11.5-14.5) % Plt Count 197 (130-400) K/uL MPV 11.5 H (7.4-10.4) fL Immature Gran % (Auto) 0.1 % Neut % (Auto) 84.6 % Lymph % (Auto) 9.0 % [place] % (Auto) 6.3 % Eos % (Auto) 0.0 % Baso % (Auto) 0.0 % Neut # (Auto) 7.41 H (1.4-6.5) K/uL Lymph # (Auto) 0.79 L (1.2-3.4) K/uL [place] # (Auto) 0.55 (0.11-0.59) K/uL Eos # (Auto) 0.00 (0-0.5) K/uL Baso # (Auto) 0.00 (0-0.2) K/uL Immature Gran # (Auto) 0.01 (0.00-0.02) K/uL PT (9.0-12.0) Seconds INR (0.9-1.1) APTT (21.0-31.0) Seconds PTT Ratio Sodium 139 (136-145) mmol/L Potassium 4.8 (3.5-5.1) mmol/L Chloride 109 H (98-107) mmol/L Carbon Dioxide 25 (21-32) mmol/L Anion Gap 5.0 (3-11) BUN 20 H (7-18) mg/dl Creatinine 0.87 (0.6-1.2) mg/dl Est Cr Clr Drug Dosing 48.0 ml/min Est GFR ( Amer) 74.0 Est GFR (Non-Af Amer) 63.8 BUN/Creatinine Ratio 23.1 H (10-20) Glucose 108 H (70-99) mg/dl Estimat Average Glucose mg/dl Hemoglobin A1c (4.5-5.6) % Calcium 9.0 (8.5-10.1) mg/dl Albumin (3.4-5.0) gm/dl Urine Color Urine Appearance (Clear) Urine pH (4.5-7.5) Ur Specific [place] (1.000-1.030) Urine Protein (Negative) Urine Glucose (UA) (Negative) Urine Ketones (Negative) Urine Blood (Negative) Urine Nitrite (Negative) Urine Bilirubin (Negative) Urine Urobilinogen (Negative) Ur Leukocyte Esterase (Negative) Blood Type Antibody Screen
[2020-01-12] MEDS: DOCUSATE SODIUM 100 MG CAP PO SCH (08:22)
[2020-01-12] MEDS ORDERED: MULTIVITAMIN TAB PO SCH (09:00)
[2020-01-12] MEDS ORDERED: lisinopriL 5 MG TAB PO SCH (09:00)
[2020-01-12] MEDS ORDERED: ASPIRIN 81 MG ECTAB PO SCH (09:00)
--- NOTE | 2020-01-17 07:43 | Discharge Summary ---
Date of Service January 17, 2020 Admission HPI Per Admitting Provider Patient is a 79 year old female with PMHx significant for HTN and PUD who presents with long standing left shoulder pain. She has pain interfering with her activities of daily living. She has failed conservative therapy including cortisone injections, physical therapy, and anti-inflammatory medications. She has significant degenerative changes in he u. She would like to proceed with replacement. Patient denies headaches, sweats, fevers, chills, double vision, blurred vision, cough, sore throat, dysphagia, chest pain, sob, wheezing, n/v/d/c, numbness, tingling, fatigue, urinary symptoms, mood disorders. ROS po sitive for left shoulder pain and stiffness. Admission Exam Per Admitting Provider Physical Exam Constitutional: well developed and well nourished; no acute distress Eyes: PERRL, conjunctivae normal, anicteric sclerae ENMT: external ear and nose normal, oropharynx normal Neck: trachea midline, no thyromegaly Respiratory: normal respiratory effort, lungs clear to auscultation Cardiovascular: RRR, no murmur, no edema Musculoskeletal: Left shoulder: Active forward flexion 0 to 90 degrees abduction 0-90 ER rotation is to neutral Skin: no rashes, warm and dry Neurologic: patellar DTR's 2+ bilat, sensation intact Psychiatric: A+Ox3, euthymic affect Principal Diagnosis Left Shoulder Djd Discharge Data Allergies Allergy/AdvReac Type Severity Reaction Status Date / Time No Known Allergies Allergy Verified 01/11/20 11:26 Consultations 01/11/20 16:24 Consult Case Management - Discharge Planning Routine Procedures Performed Operation Date: 01/11/20 13:15 Actual Procedures p Left Reverse Total Shoulder Arthroplasty(Left) - Maxx Marcum MD Ordered Studies 01/11/20 05:00 US - OR guided needle placemen Routine Hospital Course (1) Primary osteoarthritis, left shoulder: January 12, 2020 Assessment & Plan (1) Primary osteoarthritis, left shoulder: POD#1 left reverse TSA -PT/OT-no active motion of shoulder -Pain management -DVT prophylaxis-ASA 81mg daily x 1 mo -AM labs as above -D/C planning-home with HHPT likely today as long as does well with PT. Admission and Anticipated Discharge Date Admission Date: January 11, 2020 Subjective Patient doing well this morning. Having minimal pain in shoulder. Block is resolved/resolving. No complaints, denies chest pain, sob, dizziness, n/v/d. Review of Systems Review of Systems: All systems reviewed & are unremarkable except as noted in HPI & below Physical Exam Physical Exam: Left shoulder sling in place, dressing is c/d/i. Hemovac in place. 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 Distally n/v status and sensation intact Constitutional: well developed and well nourished; no acute distress Results & Data ([facility]) Vital Signs (Past 12 Hours) Vital Signs Temp Pulse Resp BP Pulse Ox 01/12/20 05:42 108/62 01/12/20 03:15 36.6 C 66 16 91/58 L 92 01/11/20 23:52 36.5 C 96 H 16 103/62 93 Laboratory Results Lab Results 12/18/19 12/18/19 12/18/19 Range/Units 13:55 13:55 13:55 WBC 6.06 (4.8-10.8) K/uL RBC 3.80 L (4.2-5.4) M/uL Hgb 12.3 (12.0-16.0) g/dL Hct 36.6 L (37-47) % Total Time Total Time Spent Total Time Spent (In Minutes): 5 Discharge Plan Discharge Items Patient Disposition: Home - Home Health Services Reason For Visit: Primary Osteoarthritis, Left Shoulder Discharge Diagnosis: Left shoulder osteoarthritis Activity: Per Instructions section Non-emergency contact: Surgeon Call non-emergency contact if: you have any medication questions, your pain is not controlled, your pain is worsening, your pain is concerning for you, you have a fever, your temperature is above 101, your wound has increased redness, your wound has increased drainage and your wound pain has increased Follow-up/Referrals: Lluvia Gonzalez MD [Primary Care Provider] - Diet: Regular Addtl Attending Provider Instructions: ACTIVITY RECOMMENDATIONS: SELF CARE INSTRUCTIONS AFTER REVERSE TOTAL SHOULDER ARTHROPLASTY A. You may do daily exercises as taught in physical therapy while in hospital. No lifting with the operative arm. Please schedule your outpatient physical therapy appointment to begin within 2-3 days after leaving the hospital unless home therapy was set up for you while in [place]. B. You are to wear your sling/immobilizer at all times EXCEPT when performing your daily exercises, participating in physical therapy and for hygiene purposes. C. You may perform dry, daily dressing changes. Please keep your incision covered. You may shower 48 hours after surgery. Do not apply soap or any ointment/lotions directly over incision. Do not soak incision in bath tub/swimming pool. D. You may use ice as needed to operative shoulder. SPECIAL CARE INSTRUCTIONS: MEDICATION INSTRUCTIONS: VERY IMPORTANT TO READ AND REVIEW A. There are a few signs you need to watch for after you are home. Call [facility] at [phone] if you experience any of the followin. Increased severe shoulder pain. Some pain is expected especially when you exercise. 2. Increased swelling in you shoulder or arm; pain or swelling in either upper extremity. 3. Any fluid drainage from the incision. 4. Shortness of breath or chest pain. B. Please call [facility] at [phone] if you have any questions or concerns about your operation or recovery. C. Call your physician if: 1. Temperature is greater than 101 degrees (F). 2. Pain is not relieved by prescribed pain medications. 3. Increase drainage or redness from incision. 4. Unanswered questions or concerns. FOLLOW UP VISIT: Please call [facility] at [phone] to schedule a follow up appointment with Dr. Marcum or his PA in 12-14 days from your surgery date. Stand-Alone Forms: My [facility] [employer], Opioid Pain Management, Smoking Cessation Medications and DC Order Prescriptions: New aspirin 81 mg Tablet,Delayed Release (Dr/Ec) 81 mg PO DAILY Qty: 30 RF: 0 acetaminophen 500 mg Tablet 1,000 mg PO Q8 Qty: 60 RF: 0 oxycodone 5 mg Tablet 5 - 10 mg PO .q4H-6H MDD 6 PRN (Reason: pain) Qty: 30 RF: 0 celecoxib [Celebrex] 200 mg capsule 200 mg PO BID Qty: 60 RF: 0 Continued multivitamin Tablet 1 tab PO QAM RF: 0 garlic 1,000 mg Capsule 1,000 mg PO QAM RF: 0 lisinopril 5 mg Tablet 5 mg PO QAM RF: 0 Calcium 600 + D(3) 600 mg calcium- 200 unit Capsule 1 cap PO QAM RF: 0 turmeric-turmeric ext-pepper 500-3 mg Capsule 500 mg PO QAM RF: 0 [facility] Formula 5-1-7.5 mg Capsule 1 cap PO QAM RF: 0 [id number] mg Capsule 1 cap PO QAM RF: 0 Discharge Orders: Discharge Order (Routine); Ordered 01/12/20 Ordered By: Ronan Ribeiro/Other Patient Handouts: DVT Post Op Prevention Admission Data Admit Date/Time: 01/11/20 15:26 Attending Provider: Maxx Marcum Admit Provider: Maxx Macrum Primary Care Provider: Lluvia Gonzalez Other Interventions: Discharge Summary Assessment (RN) Last Done: 01/12/20 09:27
== END 2020-01-12 13:03 | disposition home health service (06) | DRG 483 ==
LOC: ASU 11:09 → 3E 15:26